=== PATIENT | female | born 1950 | race Caucasian/White ===

== ENCOUNTER 2017-02-23 09:25 | Outpatient (CLI) | payer MEDICARE, BC ==
[2017-02-23 12:02] LABS: #Basophils 0.1 thou/uL (0.0-0.2); #Eosinphils 0.5 thou/uL (0.0-0.7); #Lymphocytes 2.1 thou/uL (1.20-3.40); #Monocytes 0.6 thou/uL (0.11-0.59); #Neutrophils 2.9 thou/uL (1.40-6.50); %Basophils 1.4 % (0.0-1.0); %Eosinophils 8.4 % (0.0-10.0); %Neutrophils 47.2 % (42.0-75.0); Mean Corpuscular HGB CONC 33.3 g/dL (32.0-36.0); Mean Corpuscular Hemoglobin 29.2 pg (27.0-31.0); Mean Corpuscular Volume 87.7 fl (81.0-99.0); Mean Platelet Volume 8.7 fL (7.4-10.4); Platelet Count 251 thou/uL (130-400); RBC Distribution Width 11.7 % (11.5-14.5); Red Blood Cell (RBC) Count 4.81 mill/uL (4.20-5.40); White Blood Cell (WBC) Count 6.1 thou/uL (4.8-10.8)
[2017-02-23 12:23] LABS: Bilirubin Negative (Negative); Blood, Urine Negative (Negative); Clarity Clear (Clear); Glucose, Urine (Dipstick) Negative (Negative); Leukocyte Negative (Negative); Nitrite Negative (Negative); Protein, Urine (Dipstick) Negative (Neg-Trace); Specific Gravity, Urine 1.025 (1.005-1.030); Urobilinogen 0.2 mg/dL (0.2-1.0)
[2017-02-23 12:40] LABS: Hemoglobin A1c 5.3 % (4.0-6.0)
[2017-02-23 12:41] LABS: ALT (SGPT) 18 U/L (8-55); AST (SGOT) 23 U/L (5-34); Albumin 4.2 g/dL (3.4-4.8); Alkaline Phosphatase 60 U/L (40-150); Anion Gap 16 mmol/L (10-20); BUN (Urea Nitrogen) 22 mg/dL (9.8-20.1); Bilirubin, Direct 0.2 mg/dL (0.1-0.3); Bilirubin, Total 0.5 mg/dL (0.2-1.2); Calc. Creatinine Clearance 0 mL/min (70-130); Calcium 9.9 mg/dL (7.8-10.44); Carbon Dioxide 23 mmol/L (23-31); Cardiac Risk 4.5 (Less than 4.5); Chloride 105 mmol/L (98-107); Cholesterol 188 mg/dl (< 200 Desired); Estimated GFR-MDRD 60; Glucose 88 mg/dL (80-115); HDL Cholesterol 42 mg/dL (>60 Neg Risk); LDL Cholesterol, Calculated 109 mg/dL; Potassium 4.3 mmol/L (3.5-5.1); Protein, Total 7.3 g/dL (6.0-8.3); Sodium 140 mmol/L (136-145); Triglycerides 183 mg/dL (Less than 150)
== END 2017-02-23 09:26 | disposition home or self-care (01) ==
LOC: NAVSJIPCSP 09:25
PROVIDERS: ATTEND Family Medicine
DX: E78.5 Hyperlipidemia, unspecified (principal); I10 Essential (primary) hypertension; M19.90 Unspecified osteoarthritis, unspecified site; Z79.899 Other long term (current) drug therapy
CPT/HCPCS: 36415; 80048; 80061; 80076; 81003; 83036; 84443; 85025

== ENCOUNTER 2020-02-10 10:50 | Outpatient (CLI) | payer MEDICARE, BC ==
--- NOTE | 2020-02-10 11:25 | RAD ---
Lumbar spine 3 views: 02/10/2020 COMPARISON: None available HISTORY: Low back pain FINDINGS: No anterolisthesis or retrolisthesis within the lumbar spine. Right lateral osteophyte form ation at L1-2 and left lateral osteophyte formation at L2-3. Left lateral disc space narrowing and degenerative endplate change noted at L2-3. Disc space narrowing with degenerative endplate change and posterior osteophyte noted at L4-5. Multil evel lower lumbar spine facet hypertrophic change present. No acute fracture. IMPRESSION: Multilevel degenerative change. No acute fracture.
--- NOTE | 2020-02-10 11:39 | RAD ---
SACRUM AND COCCYX 3 VIEWS: Date: 02/10/2020 INDICATION: Lumbar pain/strain. FINDINGS: SI joints appear open and are symmetric. Mild degenerative sclerosis seen along the iliac site of bot h SI joints. Sacrum and coccyx appear intact. Degenerative changes in the lower lumbar spine noted. IMPRESSION: Degenerative sclerosis involving both SI joints with degenerative changes seen in the lower lumbar sp ine. POS: AH
== END 2020-02-10 10:51 | disposition home or self-care (01) ==
LOC: NAV RAD 10:50
PROVIDERS: ATTEND Nurse Practitioner Adult Health
DX: S39.012A Strain of muscle, fascia and tendon of lower back, initial encounter (principal); M47.816 Spondylosis without myelopathy or radiculopathy, lumbar region; M53.3 Sacrococcygeal disorders, not elsewhere classified
CPT/HCPCS: 72100; 72220